=== PATIENT | male | born 1975 | race Two or more races ===

== ENCOUNTER 2022-08-27 10:03 | Emergency (ER) | payer OTHER ==
[~2022-08-27] VITALS: Ht 175.3 cm; Wt 87.2 kg
[2022-08-27] MEDS ORDERED: HYDROmorphone HCL 2 MG/ML VL/or syr IM ONE (10:30)
[2022-08-27] MEDS ORDERED: ONDANSETRON HCL 4 MG/2 ML VIAL IM ONE (10:30)
[2022-08-27] MEDS ORDERED: SODIUM CHLORIDE 0.9% 1,000 ML IV ONE (11:15)
[2022-08-27 12:00] VITALS: BP 124/72
[2022-08-27] MEDS ORDERED: IBU600T PO (12:00)
[2022-08-27] MEDS ORDERED: HYDROcodone-ACET 10/325MG TAB PO ONE (12:45)
== END 2022-08-27 13:45 | disposition home or self-care (01) ==
LOC: ER 10:03
DX: S52.532A Colles' fracture of left radius, initial encounter for closed fracture (principal); F17.210 Nicotine dependence, cigarettes, uncomplicated; W11.XXXA Fall on and from ladder, initial encounter; Y93.89 Activity, other specified; Y92.89 Other specified places as the place of occurrence of the external cause; Y99.8 Other external cause status
CPT/HCPCS: 29125; 71111; 73070; 73110; 96360; 96372; 99284; J1170; J2405; J7030